=== PATIENT | male | born 1975 | race Caucasian/White ===

== ENCOUNTER → 2021-01-01 | Outpatient (CLI) | payer OTHER | LOC: LAB 16:38 | DX: Z51.81 Encounter for therapeutic drug level monitoring (principal); Z79.891 Long term (current) use of opiate analgesic | CPT/HCPCS: G0480 ==

== ENCOUNTER 2021-03-16 00:10 | Emergency (ER) | payer OTHER ==
[2021-03-16 01:46] LABS: CORONAVIRUS HKU1 Not Detected (Not Detectd); CORONAVIRUS NL63 Not Detected (Not Detectd); CORONAVIRUS OC43 Not Detected (Not Detectd); CORONOAVIRUS 229E Not Detected (Not Detectd)
[2021-03-16 01:47] LABS: BORDETELLA PARAPERTUSSIS Not Detected (Not Detectd); BORDETELLA PERTUSSIS Not Detected (Not Detectd); CHLAMYDIA PNEUMONIAE Not Detected (Not Detectd); HUMAN METAPNEUMOVIRUS Not Detected (Not Detectd); HUMAN RHINOVIRUS/ENTEROVIRUS Not Detected (Not Detectd); INFLUENZA A Not Detected (Not Detectd); INFLUENZA B Not Detected (Not Detectd); MYCOPLASMA PNEUMONIAE Not Detected (Not Detectd); PARAINFLUENZA VIRUS 1 Not Detected (Not Detectd); PARAINFLUENZA VIRUS 2 Not Detected (Not Detectd); PARAINFLUENZA VIRUS 3 Not Detected (Not Detectd); PARAINFLUENZA VIRUS 4 Not Detected (Not Detectd); RESPIRATORY SYNCYTIAL VIRUS Not Detected (Not Detectd)
[2021-03-16 02:55] LABS: SARS-CoV-2 NOT DETECTED (Not Detectd)
== END 2021-03-16 03:03 | disposition home or self-care (01) ==
LOC: ER1 00:10
PROVIDERS: Physician Assistant
DX: J02.9 Acute pharyngitis, unspecified (principal); Z90.89 Acquired absence of other organs; F17.210 Nicotine dependence, cigarettes, uncomplicated; Z20.822 Contact with and (suspected) exposure to COVID-19
CPT/HCPCS: 71045; 87081; 87633; 87880; 99283

== ENCOUNTER 2021-06-28 18:11 | Emergency (ER) | payer OTHER ==
[2021-06-28 19:09] LABS: HEMOGLOBIN 16.5 gm/dl (14.0-17.5); RED BLOOD COUNT 5.2 M/UL (4.20-5.50); WHITE BLOOD COUNT 14.4 K/UL (4.5-11.0)
[2021-06-28 19:38] LABS: BUN/CREATININE RATIO 9 (0-10)
== END 2021-06-29 09:30 | disposition short-term general hospital (02) ==
LOC: ER1 18:11
PROVIDERS: Emergency Medicine
DX: T40.601A Poisoning by unspecified narcotics, accidental (unintentional), initial encounter (principal); G40.909 Epilepsy, unspecified, not intractable, without status epilepticus; F17.200 Nicotine dependence, unspecified, uncomplicated; Z20.822 Contact with and (suspected) exposure to COVID-19
CPT/HCPCS: 36600; 70450; 70496; 70498; 71045; 80053; 80307; 81001; 82140; 82550; 82553; 82803; 83605; 83690; 83735; 83874; 83880; 84100; 84439; 84443; 84484; 85025; 85610; 85730; 87040; 87086; 96374; 96375; 99285; G0480; J1953; J2060; J2310; J7030; Q9967; U0002

== ENCOUNTER 2021-09-25 20:05 | Inpatient (IN) | payer OTHER ==
[~2021-09-25] VITALS: Ht 188 cm; Wt 108.9 kg
[2021-09-25 20:59] LABS: HEMOGLOBIN 14.7 gm/dl (14.0-17.5); RED BLOOD COUNT 4.93 M/UL (4.20-5.50)
[2021-09-25 21:29] LABS: BUN/CREATININE RATIO 9 (0-10)
[2021-09-25 22:08] LABS: BORDETELLA PARAPERTUSSIS Not Detected (Not Detectd); BORDETELLA PERTUSSIS Not Detected (Not Detectd); CHLAMYDIA PNEUMONIAE Not Detected (Not Detectd); CORONAVIRUS HKU1 Not Detected (Not Detectd); CORONAVIRUS NL63 Not Detected (Not Detectd); CORONAVIRUS OC43 Not Detected (Not Detectd); CORONOAVIRUS 229E Not Detected (Not Detectd); HUMAN METAPNEUMOVIRUS Not Detected (Not Detectd); HUMAN RHINOVIRUS/ENTEROVIRUS Not Detected (Not Detectd); INFLUENZA A Not Detected (Not Detectd); INFLUENZA B Not Detected (Not Detectd); MYCOPLASMA PNEUMONIAE Not Detected (Not Detectd); PARAINFLUENZA VIRUS 1 Not Detected (Not Detectd); PARAINFLUENZA VIRUS 2 Not Detected (Not Detectd); PARAINFLUENZA VIRUS 3 Not Detected (Not Detectd); PARAINFLUENZA VIRUS 4 Not Detected (Not Detectd); RESPIRATORY SYNCYTIAL VIRUS Not Detected (Not Detectd)
[2021-09-25 22:33] LABS: HEMOGLOBIN 14.3 gm/dl (14.0-17.5); RED BLOOD COUNT 4.75 M/UL (4.20-5.50); WHITE BLOOD COUNT 6.4 K/UL (4.5-11.0)
[2021-09-25 22:54] LABS: BUN/CREATININE RATIO 11 (0-10)
[2021-09-25 23:22] LABS: SARS-CoV-2 NOT DETECTED (Not Detectd)
[2021-09-26 04:58] LABS: HEMOGLOBIN 11.6 gm/dl (14.0-17.5); RED BLOOD COUNT 3.9 M/UL (4.20-5.50); WHITE BLOOD COUNT 14.8 K/UL (4.5-11.0)
--- NOTE | 2021-09-26 06:20 | NUR ---
PT ARRIVED TO FLOOR, WHILE DOING MY INITAL ASSESSMENT HE WAS LETHARGIC BUT WOULD WAKE WITH STIMULATION TO ANWER QUESTIONS, LOOKED TO SEE WHAT PTS IV, WAS INFILTRATED, TECH WAS TRYING TO GET A BP, CUFF WOULD NOT PICK ONE UP, THE TECH WENT TO GET A NEW ONE AND IT READ 88/44. SHE THEN TRIED A WRIST CUFF AND IT WAS 74/66. CALLED DR VALDES, VERBAL ORDER FOR NS BOLUS X1 L. CALLED ICU FOR US TO BE BROUGHT UP, JES SORTO RN BROUGHT US TO 3109, WHILE ATTEMPTING IV ACCESS PT STARTED YELLING ABOUT US STICKING HIM THEN HE STARTED SAYING HIS CHEST WAS HURTING AND HE NEEDED TO SIT UP BECAUSE HE COULDNT BREATH,BECAME DIAPHORETIC AND WAS PLACED IN SITTING POSITON AND PT WAS HUTTON AND VANESSA MAP PULSE OX WAS READING 78%. [employer] CALLED, PLACED ON CRASH CART AND PLACED A AMBU BAG AT 15L ON PT, HE STARTED TO PINK UP AND TALK AT THAT POINT.
--- NOTE | 2021-09-26 06:31 | NUR ---
0628 DR VALDES GAVE A VERBAL ORDER FOR NARCAN 0.4MG IV. DAY SHIFT RN GAVE IT AND PT DID RESPOND TO IT.
[2021-09-26] MEDS ORDERED: BUPRENORPHIN-N1 EACH SL (07:57)
[2021-09-26 08:13] LABS: BUN/CREATININE RATIO 23 (0-10)
[2021-09-26 14:42] LABS: HEMOGLOBIN 6.1 gm/dl (14.0-17.5); RED BLOOD COUNT 2.07 M/UL (4.20-5.50); WHITE BLOOD COUNT 10.9 K/UL (4.5-11.0)
[2021-09-26 14:44] LABS: BUN/CREATININE RATIO 26 (0-10)
[2021-09-26 18:26] LABS: WHITE BLOOD COUNT 12.4 K/UL (4.5-11.0)
[2021-09-26 18:28] LABS: RED BLOOD COUNT 4.17 M/UL (4.20-5.50)
[2021-09-26 18:29] LABS: HEMOGLOBIN 12.3 gm/dl (14.0-17.5)
[2021-09-26 19:07] LABS: BUN/CREATININE RATIO 25 (0-10)
== END 2021-09-26 21:34 | disposition short-term general hospital (02) | DRG 871 ==
LOC: ER1 20:05 → 3 EAST 09-26 00:54 → CDU 09-26 00:54 → 3 EAST 09-26 06:15 → CCU 09-26 14:50
PROVIDERS: Internal Medicine; Preventive Medicine Occupational Medicine; ADMIT Internal Medicine
PROC: 3E033XZ Introduction of Vasopressor into Peripheral Vein, Percutaneous Approach (ICD-10-PCS; principal; 2021-09-26)
PROC: 30233N1 Transfusion of Nonautologous Red Blood Cells into Peripheral Vein, Percutaneous Approach (ICD-10-PCS; 2021-09-26)
PROC: 05HM33Z Insertion of Infusion Device into Right Internal Jugular Vein, Percutaneous Approach (ICD-10-PCS; 2021-09-26)
DX: A41.9 Sepsis, unspecified organism (principal); J69.0 Pneumonitis due to inhalation of food and vomit; J96.01 Acute respiratory failure with hypoxia; R57.8 Other shock; K26.4 Chronic or unspecified duodenal ulcer with hemorrhage; D62 Acute posthemorrhagic anemia; K55.9 Vascular disorder of intestine, unspecified; E87.2 Acidosis; K57.92 Diverticulitis of intestine, part unspecified, without perforation or abscess without bleeding; R65.20 Severe sepsis without septic shock; Z20.822 Contact with and (suspected) exposure to COVID-19; G40.909 Epilepsy, unspecified, not intractable, without status epilepticus; F17.200 Nicotine dependence, unspecified, uncomplicated; F19.10 Other psychoactive substance abuse, uncomplicated; Z90.49 Acquired absence of other specified parts of digestive tract; Z82.49 Family history of ischemic heart disease and other diseases of the circulatory system; Z79.899 Other long term (current) drug therapy
CPT/HCPCS: 36415; 36430; 36600; 70450; 71045; 80048; 80053; 80307; 81001; 82009; 82140; 82270; 82550; 82553; 82803; 82962; 83605; 83690; 83874; 83880; 84484; 85014; 85018; 85025; 85384; 85610; 85652; 86140; 86850; 86900; 86901; 86920; 86927; 87040; 87086; 87633; 93005; 94664; 94760; 96365; 96375; 99285; C9113; G0480; J0295; J0696; J1953; J2060; J2185; J2310; J2354; J2405; J3370; J3430; J7030; J7050; J7070; P9016; P9017; P9035; Q9967